=== PATIENT | female | born 1950 | race Hispanic/Latino ===

== ENCOUNTER 2021-06-18 07:32 | Day surgery (SDC) | payer MEDICARE ==
[2021-06-18] VITALS (7 sets, daily range): BP systolic 128–154; BP diastolic 39–58
[~2021-06-18 07:32] MED LIST: 0.9%NACL 1000ML 1,000 ML IV ONE
[2021-06-18] MEDS ORDERED: LORA10TA7 PO (09:25)
[2021-06-18] MEDS ORDERED: HYDR25SU38 RC (09:25)
[2021-06-18] MEDS ORDERED: GLUC1VIA14 IJ (09:25)
[2021-06-18] MEDS ORDERED: NADO20TA3 PO (09:25)
[2021-06-18] MEDS ORDERED: FLUT16H NASAL (09:25)
[2021-06-18] MEDS ORDERED: ACET325T51 PO (09:25)
[2021-06-18 09:53] LABS: CREATININE 6.8 mg/dL (0.5-1.5); POTASSIUM 4.2 mmol/L (3.5-5.1)
[2021-06-18] MEDS ORDERED: PROPOFOL 10 MG/ML 20ML VIAL IV ONE (10:51)
[2021-06-18] MEDS ORDERED: L. A1TAB10 PO (10:55)
[2021-06-18] MEDS ORDERED: ALUM320O4 PO (10:55)
[2021-06-18] MEDS ORDERED: MULT1TAB82 PO (10:55)
[2021-06-18] MEDS ORDERED: LEVE-43 PO (10:55)
[2021-06-18] MEDS ORDERED: LACT10SO9 PO (10:55)
[2021-06-18] MEDS ORDERED: INSLAN SQ (10:55)
[2021-06-18] MEDS ORDERED: SUCR500T PO (10:58)
[2021-06-18] MEDS ORDERED: PANT40TA PO (10:58)
[2021-06-18] MEDS ORDERED: ONDA4TAB4 PO (10:58)
[2021-06-18] MEDS ORDERED: POLY17PO4 PO (10:58)
[2021-06-18] MEDS ORDERED: FLUO20CA30 PO (10:58)
[2021-06-18] MEDS ORDERED: RIFA550T PO (10:58)
[2021-06-18] MEDS ORDERED: EPHEDRINE SULFATE 50 MG/ML AMPULE ONE (11:10)
== END 2021-06-18 12:20 | disposition home or self-care (01) ==
LOC: DAH 07:32
PROVIDERS: ATTEND Internal Medicine Gastroenterology
DX: K92.2 Gastrointestinal hemorrhage, unspecified (principal); Z20.822 Contact with and (suspected) exposure to COVID-19; I85.10 Secondary esophageal varices without bleeding; K31.89 Other diseases of stomach and duodenum; K63.5 Polyp of colon; K76.6 Portal hypertension; K74.60 Unspecified cirrhosis of liver; K64.1 Second degree hemorrhoids; E11.22 Type 2 diabetes mellitus with diabetic chronic kidney disease; N18.9 Chronic kidney disease, unspecified; M19.90 Unspecified osteoarthritis, unspecified site; M81.0 Age-related osteoporosis without current pathological fracture; Z79.899 Other long term (current) drug therapy; Z98.890 Other specified postprocedural states; Z98.891 History of uterine scar from previous surgery; Z86.19 Personal history of other infectious and parasitic diseases; Z94.9 Transplanted organ and tissue status, unspecified; Z98.49 Cataract extraction status, unspecified eye
CPT/HCPCS: 36415; 43239; 45380; 80048; 82948 ×2; 87635 ×2; 88305; 88342; 93005; A4215 ×2; A4221; A4222; A4223; A4606; A4620; A4663; C9803; J2704; J3490; J7030